=== PATIENT | male | born 1955 | race Caucasian/White ===

== ENCOUNTER → 2018-05-22 | Emergency (ER) | payer OTHER ==
[~2018-05-22] VITALS: Ht 175.3 cm; Wt 108.0 kg
[2018-05-22] VITALS (9 sets, daily range): BP systolic 92–133; BP diastolic 45–73
[~2018-05-22] MED LIST: APAP650 PO; ASPIR 8181 MG PO; COREG6.25 MG PO; EFFIENT10 MG PO; FARXIGA10 MG PO; GLUCOPHAGE XR500 MG PO; HYDROCHLOROTH12.5 M1 PO; INVOKANA100 MG PO; LISINOPRIL10 MG PO; LISINOPRIL2.5 MG PO; MULTI COMPLETE1 EAC1 PO; NITROGLYCERIN0.4 MG SUBLING; PRAVACHOL40 M1 PO; VALIUM10 MG PO
[2018-05-22 08:48] LABS: ABSOLUTE EOSINOPHILS 0.2 thou/uL (0.0-0.7); ABSOLUTE LYMPHOCYTES 1.6 thou/uL (0.8-5.3); ABSOLUTE MONOCYTES 0.8 thou/uL (0.0-1.2); ABSOLUTE NEUTROPHILS 4.1 thou/uL (1.6-8.1); BASOPHILS 0.5 %; EOSINOPHILS 2.7 %; HEMATOCRIT 51.1 % (42.0-52.0); HEMOGLOBIN 17.3 gm/dL (14.0-18.0); LYMPHOCYTES 23.6 %; MCH 32.2 pg (26.0-34.0); MCHC 33.8 g/dL (28.0-37.0); MCV 95.2 fL (80.0-100.0); MONOCYTES 11.7 %; MPV 8.5 fl. (7.2-11.1); NUCLEATED RBCS 0 /100WBC; PLATELET COUNT* 204 thou/uL (150-400); POLYS 61.5 %; RBC 5.37 mil/uL (4.50-6.00); WBC 6.6 thou/uL (4.0-11.0)
[2018-05-22 08:56] LABS: PROTIME 10.4 Seconds (9.20-11.50)
[2018-05-22 09:48] LABS: ALBUMIN 4.3 g/dL (3.4-5.0); ALKALINE PHOSPHATASE 62 U/L (46-116); ANION GAP 12 mmol/L (7-16); BUN 16 mg/dL (7-18); CHLORIDE 97 mmol/L (98-107); CO2 26 mmol/L (21-32); CREATININE 0.9 mg/dL (0.6-1.3); GLUCOSE 208 mg/dL (70-99); LIPASE 158 U/L (73-393); NT-PRO BRAIN NAT PEPTIDE 197 pg/mL (<300); POTASSIUM 4.3 mmol/L (3.5-5.1); SGOT 12 U/L (15-37); SGPT 35 U/L (30-65); SODIUM 135 mmol/L (136-145); TOTAL BILIRUBIN 0.8 mg/dL (<0.1-1.0); TOTAL PROTEIN 8.6 g/dL (6.4-8.2); TROPONIN-I LEVEL <0.06 ng/mL (<0.06)
[2018-05-22 09:54] LABS: CALCIUM 9.4 mg/dL (8.5-10.1)
--- NOTE | 2018-05-22 16:25 | CON ---
[address] [address] CONSULTATION Name: RO HODGES Room: [address] [place] .R.#: [id number] Admission: 05/22/18 Attend Phys: Ariel Ashley MD, Discharge: Date of : 51 Report #: [id number] THIS REPORT FOR: //name// CC: Ariel Wadsworth DATE OF SERVICE: 05/22/2018 HISTORY OF PRESENT ILLNESS: The patient is a very pleasant 62-year-old male who presented 3 years ago with an acute coronary syndrome with subtotal left main occlusion extending into the LAD and proximal circumflex. He underwent acute complex intervention of the left main, LAD and circumflex. Subsequently, he underwent intervention to the LAD and 1 year ago to the proximal circumflex. Recently, he has been quite active and with his regular exercise program, denies chest pain or dyspnea. However, recent nuclear stress test revealed a moderate size inducible lateral ischemic defect. Given his complex coronary artery disease and multiple risk factors, cardiac catheterization is to be considered. PAST MEDICAL HISTORY: Remarkable for hypertension, hypercholesterolemia, weight excess, and type 2 diabetes. MEDICATIONS: Include acetaminophen, Invokana, carvedilol, diazepam, hydrochlorothiazide, lisinopril, metformin, nitroglycerin and prasugrel. FAMILY HISTORY: Remarkable for heart disease in his mother, father, brother, and sister. REVIEW OF SYSTEMS: Remarkable for the following: GENERAL: He notes modest weight increase. He notes some dyspnea on exertion. Remainder is unremarkable. PHYSICAL EXAMINATION: GENERAL: Reveals a modestly overweight, middle-aged male in no acute distress. VITAL SIGNS: Blood pressure 130/70, pulse rate is 74, respirations are 18 per minute. NECK: Jugular venous pressure is normal with carotids being 1-2+. CHEST: Clear. CARDIAC: Reveals normal first and second heart sounds with a question of an S4 gallop. ABDOMEN: Mildly obese. EXTREMITIES: Without edema with intact femoral, pedal and radial pulses. IMPRESSION: 1. Coronary artery disease, status post remote myocardial [place] [address] CONSULTATION Name: RO HODGES Room: [address] IN [facility]#: [id number] Admission: 05/22/18 Attend Phys: Ariel Ashley MD, Discharge: Date of : 51 Report #: [id number] recent stenting of the LAD and circumflex. 2. Status post emergent stenting of the left main, LAD and proximal circumflex in 2014. 3. Type 2 diabetes. 4. Hypertension. 5. Hypercholesterolemia. 6. Mild weight excess. RECOMMENDATIONS: Given the aforementioned clinical scenario with confirmed complex coronary artery disease, multiple risk factors and recently abnormal nuclear stress test, I would recommend proceeding with cardiac catheterization to define current coronary anatomy and prospects for subsequent therapeutic modification. Critical care time 38 minutes. <ELECTRONICALLY SIGNED> By: Ariel Ashley MD, [facility] 05/22/18 [id number] Jasmine Ashley MD, [facility] /nt
--- NOTE | 2018-05-23 11:02 | CARD ---
[address] [address] CARDIAC CATH REPORT Name: HODGESRO Dori [id number] Admission: 05/22/18 Attend Phys: Discharge: Date of : 51 Report #: [id number] THIS REPORT FOR: //name// APPROVED REPORT Study performed: 05/22/2018 08:52:41 Patient Details Patient Status: ED Room #: The patient is a 62 year-old male Event Personnel Ariel Ashley Equipment Maintenance Superintendent, Marilynn Pritchard RN RN, Donato Davis, Eric Ernst, Luba Soto RN Monitor Procedures Performed Art Access - R femoral artery* Left Heart Cath w/or w/o Coronaries , Hemostasis w/ Mynx Indication Positive stress test Risk Factors Dysplipidemia , Hypercholesterolemia, Coronary Artery DiseaseHypertension, Diabetes Previous Procedures/Diagnoses Previous PCI, Previous [place] Admission/Lab Medications/Medications given during procedure Midazolam (Versed) IV 2 mg, Fentanyl IV 50 mcg Procedure Narrative The patient was brought urgently to the Cardiac Catheterization Laboratory and was prepped and draped in a sterile manner. The right femoral was infiltrated with 2% Lidocaine subcutaneous anesthesia. A Acworth 6 FR sheath was inserted into the right femoral artery. Coronary angiography was performed using coronary diagnostic catheters. The right coronary system was accessed and visualized with a 3DRC 6fr catheter. The left coronary system was accessed and visualized with a JL4 6Fr catheter. The left ventricle was accessed and visualized with a Straight Pig 6Fr catheter. Left ventriculogram was performed in CEJA projection. Pre-demployment femoral angiogram was performed CEJA. Closure device was deployed with a 6 [place] [address] CARDIAC CATH REPORT Name: RO HODGES Room: [facility]#: [id number] Admission: 05/22/18 Attend Phys: Discharge: Date of : 51 Report #: [id number] patient tolerated the procedure well and there were no complications associated with the procedure. There was no hematoma. Intraoperative Conscious Sedation Fentanyl 50 mcg Fluoro Time: 3.9 minutes Dose: 1184 mGy Contrast Type and Amount: Visipaque 170 ml Coronary Angiography The patient's coronary anatomy is right dominant. Diagnostic Cath Left Main 10% distal narrowing LAD 30% proximal narrowing with 60% mid LAD in-stent restenosis Circumflex 40% proximal in-stent restenosis with 40% narrowing in the proximal portion of the prominent first marginal branch Right Coronary 100% proximal occlusion with [id number] collaterals filling the distal right coronary artery Left Ventriculography The left ventricle is normal in size with contractility. The left ventricular ejection fraction is estimated to be 45%. Left ventricular wall motion abnormalities are present. Inferobasilar hypokinesis is noted Hemodynamics The aortic pressure is 135/54 mmHg with a mean of 82 mmHg. The left ventricular pressure is 111/3 mmHg with a mean of mmHg. The left ventricular end diastolic pressure is 10 mmHg. There was no gradient across the aortic valve upon pullback. Conclusion #1 coronary artery disease characterized by the following: A 10% distal left main coronary artery narrowing B 30% proximal LAD narrowing and 60% mid LAD in-stent restenosis C nondominant circumflex with 40% proximal in-stent restenosis and 40% narrowing of the proximal portion of the first marginal branch D dominant right coronary artery with 100% proximal occlusion with [id number] collaterals filling [place] [address] CARDIAC CATH REPORT Name: RO HODGES Room: [facility]#: [id number] Admission: 05/22/18 Attend Phys: Discharge: Date of : 51 Report #: [id number] artery #2 mild impairment in global left ventricular systolic function, estimated ejection fraction of 45% with inferobasilar hypokinesis #3 normal left-sided hemodynamics study. Recommendations Cardiac Risk Reduction Program Aggressive Medical Therapy Diagnostic Cath Approved by: Ariel Ashley MD Date/Time: 05/23/2018 11:01:00 <ELECTRONICALLY SIGNED> By: Ariel Ashley MD, [facility] 05/23/18 1102 1102 [id number] Jasmine Ashley MD, FACC /INF
--- NOTE | 2018-05-23 13:51 | NUR ---
Follow up phone call, patient states he is doing well, was able to get all his medications, right groin cath puncture site is healing well, no signs of infection, he did not have any questions or concerns at this time.
--- NOTE | 2018-05-23 18:02 | EKG ---
[place] [address] ELECTROCARDIOGRAM REPORT Name: RO HODGES Dori Room: [facility]#: [id number] Admission: 05/22/18 Attend Phys: Discharge: Date of : 51 Report #: [id number] THIS REPORT FOR: //name// [facility] ED Test Date: 2018-05-22 Test Time: 08:30:02 Pat Name: RO HODGES Department: Room: [facility] Gender: M Card Feeder: NIMISHA : 1955 Requested By: Ned Amos Order Number: [id number] MD: Noel Camargo Measurements Intervals [place] Rate: 90 P: 37 MS: 208 QRS: 34 QRSD: 116 T: -43 QT: 346 QTc: 424 Interpretive Statements Sinus rhythm Inferior infarct, age indeterminate Baseline wander in lead(s) V6 Compared to ECG 05/26/2017 02:24:48 Myocardial infarct finding now present Ventricular premature complex(es) no longer present T-wave abnormality no longer present Electronically Signed On 05-23-2018 18:02:15 ASSOCIATE PROFESSOR OF SURGERY by Noel Camargo [email or web address] <ELECTRONICALLY SIGNED> By: Noel Camargo MD, FACC 05/23/18 1802 9 9 Noel Camargo MD, FACC /EPI
== END ==
LOC: M.CL 08:24 → M.ERS 08:24 → M.CL 09:02 → M.TBA-CV 09:02
PROVIDERS: Emergency Medicine
DX: I20.0 Unstable angina (principal); I10 Essential (primary) hypertension; E78.00 Pure hypercholesterolemia, unspecified; E78.5 Hyperlipidemia, unspecified; Z95.5 Presence of coronary angioplasty implant and graft; Z98.890 Other specified postprocedural states